=== PATIENT | female | born 1975 | race Caucasian/White ===

== ENCOUNTER 2017-07-03 08:20 | Outpatient (CLI) | payer SELFPAY ==
--- NOTE | 2017-07-03 09:57 | ULT ---
ABDOMINAL ULTRASOUND: DATE: 07/03/17. COMPARISON: None. HISTORY: Abdominal pain. TECHNIQUE: Multiplanar, siddiqui scale, sonographic imaging of the abdomen provided. FINDINGS: Imaged IVC and aorta appear within normal limits. Imaged pancreatic parenchyma is unremarkable. The distal body and the tail of the pancreas are sligh tly obscured by bowel gas. There is no focal liver lesion or intrahepatic biliary dilatation noted. Gallbladder wall is normal in thickness. There is no pericholecystic fluid or gallstones. Sonograph ic Gibson's sign is negative. The common bile duct measures 5 mm, within normal limits. The right kidney measures 11.4 cm in craniocaudal dimension and demonstrates no stone, hydronephrosis , or mass. The spleen measures up to 8.3 cm, within normal limits. The left kidney measures 11.1 cm in craniocaudal dimension and demonstrates no stone, hydronephrosis, or mass. IMPRESSION: Unremarkable abdominal ultrasound. POS: [id number]
== END 2017-07-03 08:21 | disposition home or self-care (01) ==
LOC: ULT 08:20
PROVIDERS: ATTEND Family Medicine
DX: R10.13 Epigastric pain (principal)
CPT/HCPCS: 76700

== ENCOUNTER 2020-03-25 12:50 | Outpatient (CLI) | payer OTHER ==
--- NOTE | 2020-03-25 13:23 | ULT ---
THYROID ULTRASOUND: HISTORY: Thyroid mass.. COMPARISON: None. CORRELATION: Soft tissue neck CT 03/02/2020. FINDINGS: Thyroid isthmus: 0.3 cm. Right thyroid lobe: 5.0 x 1.7 x 2.1 cm. Left thyroid lobe: 4.4 x 1.1 x 1.4 cm. Thyroid nodules: Small subcentimeter predominate solid nodules occupy the right thyroid lobe. Represe ntative nodule in the right thyroid lobe measures 0.6 x 0.5 x 0.6 cm. There appear to be minimal calcifications. Left thyroid lobe: There are solid nodules in the upper pole left thyroid lobe measuring 0.6 x 0.6 x 0.6 cm and a solid nodule in the lower pole left lobe measuring 0.8 x 0.5 x 0.6 cm. IMPRESSION: 1. Two solid nodules in the left thyroid lobe. 2. Multiple mixed solid and cystic nodules in the right thyroid lobe. Largest nodule does have some c alcifications. 3. TI-RADS level TR 4 for the left thyroid lobe nodules. Follow-up ultrasound in one year is recommen ded. At that time, the right thyroid nodules can also be reevaluated. Correlation made with previous CT suggests that the entire right thyroid lobe is somewhat asymmetrically enlarged rather th an there being a large dominant nodule occupying the entire right thyroid lobe. Transcribed Date/Time: 03/25/2020 1:35 PM
== END 2020-03-25 12:51 | disposition home or self-care (01) ==
LOC: BICULT 12:50
PROVIDERS: ATTEND Otolaryngology Plastic Surgery within the Head & Neck
DX: E07.89 Other specified disorders of thyroid (principal); E04.2 Nontoxic multinodular goiter
CPT/HCPCS: 76536